=== PATIENT | female | born 2000 | race Caucasian/White ===

== ENCOUNTER 2021-06-19 12:46 | Outpatient (CLI) | payer OTHER, SELFPAY ==
[2021-06-19 13:08] LABS: Basophils Percent Auto 0.5 % (0.2-1.2); Eosinophils Absolute Auto 0.1 K/mm3 (0-0.3); Eosinophils Percent Auto 2.3 % (0-4.4); Hematocrit 37.8 % (37.0-47.0); Hemoglobin 12.8 g/dL (12.0-15.0); Immature Granulocyte Absolute 0.01 K/mm3 (0.00-0.031); Immature Granulocyte Percent A 0.2 % (0-0.5); Lymphocytes Absolute Auto 2.31 K/mm3 (0.9-3.2); Lymphocytes Percent Auto 37.5 % (18.3-44.2); Mean Corpuscular HGB Conc 33.9 g/dl (32-36); Mean Corpuscular Hemoglobin 30.8 pg (26-34); Mean Corpuscular Volume 90.9 fl (80-100); Mean Platelet Volume 10.5 fl (7.4-10.4); Monocytes Absolute Auto 0.5 K/mm3 (0.1-0.6); Monocytes Percent Auto 7.5 % (2.6-8.5); Neutrophils Absolute Auto 3.2 K/mm3 (1.3-6.7); Platelet Count Result 270 k/mm3 (150-375); Red Blood Count 4.16 M/mm3 (4.2-5.4); Red Cell Distribution Width 11.5 % (11.5-14.5); White Blood Count 6.2 K/mm3 (4.5-10.0)
[2021-06-19 13:24] LABS: Alanine Aminotransferase 22 U/L (4-35); Albumin Level 4.7 g/dL (3.5-5.1); Alkaline Phosphatase 57 U/L (38-126); Anion Gap 10 mmol/L (8-16); Aspartate Amino Transferase 25 U/L (14-36); Bilirubin,Total 0.3 mg/dL (0.2-1.3); Blood Urea Nitrogen 15 mg/dL (7-17); Calcium 9.5 mg/dL (8.4-10.2); Carbon Dioxide 23 mmol/L (22-30); Chloride 107 mmol/L (98-107); Estimated Glomerular Filt Rate > 60; Glucose 100 mg/dL (65-110); Potassium 4.6 mmol/L (3.4-5.0); Sodium 140 mmol/L (137-145)
== END 2021-06-19 12:47 | disposition home or self-care (01) ==
LOC: ANHLAB 12:48
PROVIDERS: PCP Internal Medicine; Visit Provider Nurse Practitioner
DX: Z13.29 Encounter for screening for other suspected endocrine disorder (principal)
CPT/HCPCS: 36415; 80053; 85025

== ENCOUNTER → 2023-07-17 13:18 | Outpatient (CLI) | payer OTHER, SELFPAY ==
--- NOTE | ~2023-07-17 | DEXA_ITS ---
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 Exam Date: July 17, 2023 Accession number: [id number] Bone Density: Region BMD T-score Z-score Classification AP Spine (L1-L4) 1.019 -0.3 -0.2 Normal Femoral Neck (Left) 0.939 0.8 0.8 Normal Total Hip (Left) 1.018 0.6 0.6 Normal Femoral Neck (Right) 0.911 0.6 0.6 Normal Total Hip (Right) 1.045 0.8 0.8 Normal Total Hip Mean 1.032 0.7 0.7 Normal World Health Organization criteria for BMD impression classify patients as: Normal (T-score at or above -1.0), Osteopenia (T-score between -1.0 and -2.5), or Osteoporosis (T-score at or below -2.5). 10-year Fracture Risk: FRAX not reported because: Premenopausal woman All T-scores for Spine Total, Hip Total, Femoral Neck at or above -1.0 Previous Exams: Region Exam Age BMD T-score BMD Change BMD Change Date g/cm2 vs Baseline vs Previous AP Spine(L1-L4) 07/17/2023 23 1.019 -0.3 0.031* 0.046* 10/31/2019 19 0.973 -0.7 -0.015 -0.015 06/11/2015 15 0.988 Total Hip(Left) 07/17/2023 23 1.018 0.6 0.074* -0.001 10/31/2019 19 1.019 0.6 0.075* 0.022 06/13/2017 17 0.997 0.053* 0.053* 06/11/2015 15 0.944 Total Hip(Right) 07/17/2023 23 1.045 0.8 0.013 -0.012 10/31/2019 19 1.056 0.9 0.025 0.041* 06/13/2017 17 1.015 -0.016 -0.016 06/11/2015 15 1.031 *Denotes significance at 95% confidence level, LSC for AP Spine = 0.022 g/cm2, LSC for Total Hip = 0.027 g/cm2 Clinical Information Provided by Patient: Has used the following medications: Vitamin D, Calcium, DEPO Patient maximum height was 64.75 No regular weight bearing exercise Does not regularly consume dairy products Drinks caffeinated beverages Onset of menses at age 13 Premenopausal Number of children 0 Missed period for more than 6 months in a row Impression: The patient's bone mass is within expected range for age, gender and ethnicity. No significant bone loss was observed. Discussion: BONE DENSITY IS WITHIN EXPECTED LIMITS FOR AGE, SEX AND RACE. Bone density is within expected limits for age, sex and race at
== END ==
PROVIDERS: PCP Nurse Practitioner Obstetrics & Gynecology; Visit Provider Nurse Practitioner Obstetrics & Gynecology
DX: Z79.3 Long term (current) use of hormonal contraceptives (principal)
CPT/HCPCS: 77080

== ENCOUNTER 2025-03-28 12:51 | Outpatient (NON) | payer BC, SELFPAY ==
--- OUTSIDE RECORDS SUMMARY | 2025-03-28 12:56 | XMS_ITS | Encounter Summary ---
Author Organization [facility] Address [facility] [place] [address] Care Team Providers Care Meat Processing Center Manager Name Role Phone Unavailable Primary Care Provider Unavailabl e Reason for Visit * Reason Onset Date Comments Establish Care 03/13/2025 Encounter Details Date Type Department Care Team (Late st Contact Info) Description 03/13/2025 Telephone [facility] - INTERACTIVE DIGITAL MEDIA SPECIALIST [address] [place] [address] Marilyn Ceron, CLIENT SERVICE ASSOCIATE-PIPELINE SYSTEMS OPERATOR [address] [place] [address] Establish Care Social History Tobacco Use Types Packs/Day Years Used Date Smoking Tobacco: Never Assessed Comments Unknown Sex and Gender Information Value Date Recorded Sex Assigned at Not on file Legal Sex Female 8:42 AM CDT Gender Identity Not on file Sexual Orientation Not on file documented as of this encounter Miscellaneous Notes * Telephone Encounter - Nishi Abdi - 03/13/2025 12:43 PM CDT Called and left message for pt to establish 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 documented in this encounter Plan of Treatment Upcoming Encounters Date Type Department Care Team (Late st Contact Info) Description 04/23/2025 1:00 PM CDT Office Visit [facility] - INTERACTIVE DIGITAL MEDIA SPECIALIST [address] [place] [phone] Marilyn Ceron, CLIENT SERVICE ASSOCIATE-PIPELINE SYSTEMS OPERATOR [address] [address] documented as of this encounter Visit Diagnoses Not on filedocumented in this encounter
--- OUTSIDE RECORDS SUMMARY | 2025-03-28 12:56 | XMS_ITS | Continuity of Care Document ---
Author Organization [facility] Address [address] [place] [address] Phone Care Team Providers Care Drapery Worker Name Role Phone Conversion MD, Doctor Unavailable Unavailabl e Allergies, Adverse Reactions, Alerts Substance Reaction Status Criticality No Known Drug Allergies Other Active No I nformation Medications Medication Instructions Dosage Effective Dates (start - stop) Status Comments QVAR 40MCG PUFFS 2 BID - Active 3months supply XOPENEX HFA 45MCG PUFFS 2 Q 6HR - Active AEROCHAMBER 0 DIRECTE - Active FLOVENT HFA 44 MCG INHALER 2 BID - No Longer Active 90 day supply ALBUTEROL 90 MCG INHALER 2 Q 4HR - No Longer Active 90 day supply FLOVENT HFA 44 MCG INHALER 2 BID - No Longer Active 90 day supply FLOVENT HFA 44 MCG INHALER 2 BID - No Longer Active 90 day supply ALBUTEROL 90 MCG INHALER 2 Q 4HR - No Longer Active 90 day supply ALBUTEROL 90 MCG INHALER 2 Q 4HR - No Longer Active 90 day supply FLOVENT HFA 44 MCG INHALER 2 BID - No Longer Active 90 day supply ALBUTEROL 90 MCG INHALER 2 Q 4HR - No Longer Active FLOVENT HFA 44 MCG INHALER 2 BID - No Longer Active FLOVENT HFA 44 MCG INHALER 2 BID - No Longer Active ALBUTEROL 90 MCG INHALER 2 Q 4HR - No Longer Active FLOVENT HFA 44MCG PUFFS 2 BID - No Longer Active AEROCHAMBER PUFFS 0 DIRECTE - No Longer Active ALBUTEROL 90 MCG INHALER 2 Q 4HR - No Longer Active FLOVENT HFA 44 MCG INHALER 2 BID - No Longer Active ALBUTEROL 90MCG PUFFS 2 Q 4HR - No Longer Active Advance Directives Directive Yes / No Effective Date File Name No Information Encounters Encounter Description Practice Location Reason(s) For Visit Diagnoses Date Provider Providers [facility] [address], [place], [place], [id number], tel:[phone] Conversion Department No Information 1 Conversion Doctor. [address] [place] [address], [facility], . [facility], [address], [place], [id number], tel:[phone] [facility] [place] INTRINSIC ASTHMA NOS 8 Alex Biswas. [address] [place] [address], [id number], . tel:[phone] [employer], [address], [place], [place], [id number], tel:[phone] [facility] [place] No Information 6 Alex Biswas. [address] [place] [address], [id number], . tel:[phone] Family History Family Member Type Diagnosis Age At Onset No Information Payers Payer name Insurance type Covered democrat ID Authoriza tion(s) No Information Social History Type Description Quantity Date Captured Comments Sex Female Smoking Status No Information Sexual Orientation Don't Know Chief Complaint And Reason For Visit No Information Reason For Referral Reason For Referral No Information History Of Present Illness Encounter Date Complaint History Of Prese nt Illness No Information Functional Status Date Functional Assessmen t No Information Medications Administered Medication Instructions Dosage Effective Dates (start - stop) Status Comments FLOVENT HFA 44MCG PUFFS 2 BID - No Longer Active ALBUTEROL 90MCG PUFFS 2 Q 4HR - No Longer Active Instructions Date Instruction Additional Infor mation No Information Assessments Type Assessment Date No Information Patient Care Teams Name Effective Dates (start - stop) Status Members No Information
--- OUTSIDE RECORDS SUMMARY | 2025-03-28 12:56 | XMS_ITS | Clinical Summary ---
Author Organization [facility] Address [address] [place] [address] Care Team Providers Care Media Production Operator Name Role Phone Unavailable Primary Care Provider Xander e Source Comments [facility],non-owned Affiliates and Associated Physician Practices is amultiple site organization consisting of ambulatory clinics and hospital sitesin [place], [place], [place] and [place]. This disclosure is being madepursuant to the Care Everywhere program and may not contain all information available regarding this patient. Last updated 18.[facility] Health Encounters Date Type Department Care Team Description 03/13/2025 Telephone [facility] - ANIMAL STICKER [address] [place] [address] Marilyn Ceron APRN-CNP Establish Care from Last 3 Months Social History Tobacco Use Types Packs/Day Years Used Date Smoking Tobacco: Never Assessed Comments Unknown Sex and Gender Information Value Date Recorded Sex Assigned at Not on file Legal Sex Female 8:42 AM CDT Gender Identity Not on file Sexual Orientation Not on file Plan of Treatment Upcoming Encounters Date Type Department Care Team (Late st Contact Info) Description 04/23/2025 1:00 PM CDT Office Visit [facility] - ANIMAL STICKER [address] [place] [phone] Marilyn Ceron APRN-CNP [address] [place] [address] Health Maintenance Due Date Last Done Comments PAP SMEAR 2000 HIV SCREENING 2013 HEPATITIS C SCREENING 01/26/2016 DTAP/TDAP/TD VACCINES (1 - Tdap) 2017 HEPATITIS B VACCINE (1 of 3 - 19+ 3-dose series) 2017 COVID-19 VACCINE (3 - 2023-2 5 season) 2024 12/01/2021, 11/10/2021 DEPRESSION SCREENING 10/30/2024 INFLUENZA VACCINE (Season Ended) 2025 ZOSTER VACCINE (1 of 2) 01/31/2048 HIB VACCINE Aged Out No longer eligi ble based on patient's age to complete this topic HPV VACCINE Aged Out No longer eligi ble based on patient's age to complete this topic MENINGOCOCCAL (Group B) VACCINE SHARED DECISION-MAKING Aged Out No longer eligible based on patient's age to complete this topic MENINGOCOCCAL GROUPS A/C/Y/W VACCINE Aged Out No longer eligible b ased on patient's age to complete this topic PNEUMOCOCCAL VACCINE Aged Out No long er eligible based on patient's age to complete this topic Insurance ANTH
[2025-03-28 16:43] LABS: Add Urine Microscopic? YES; Appearance Urine Clear (Clear); Bacteria Urine None Seen /hpf; Bilirubin Urine Negative (Negative); Blood Urine Negative (Negative); Color Urine Yellow (Yellow); Glucose Urine UA Negative (Negative); Ketones Urine Negative (Negative); Leukocyte Esterase Ur 1+ LEU/UL (Negative); Nitrate Urine Negative (Negative); Non Pathogenic Casts 0-2; Protein Urine Negative (Negative); RBC Urine 0-2 /hpf (0-2); Specific Grav Ur 1.014 (1.001-1.035); Squamous Epithelial Cell Urine None Seen /hpf (Few); Urobilinogen Urine 0.2 mg/dL (<2.0)
== END 2025-03-28 12:52 | disposition home or self-care (01) ==
LOC: ANHGOSHLAB 12:53
PROVIDERS: PCP Internal Medicine; Visit Provider Nurse Practitioner
DX: R30.0 Dysuria (principal); R35.0 Frequency of micturition
CPT/HCPCS: 81001; 87086